=== PATIENT | male | born 1995 | race Caucasian/White ===

== ENCOUNTER 2016-07-11 18:44 | Emergency (ER) | payer OTHER ==
[~2016-07-11] VITALS: Ht 180.3 cm; Wt 69.4 kg
[2016-07-11 18:45] VITALS: TEMP 36.4; O2SAT 99; Ht 180.3 cm; Wt 69.4 kg
[2016-07-11] MEDS ORDERED: RMCI INJ (18:56)
[2016-07-11 19:25] LABS: BLOOD UREA NITROGEN 14 mg/dl (7-18); CALCIUM 8.5 mg/dl (8.5-10.1); CARBON DIOXIDE 22 mmol/L (21-32); CHLORIDE 110 mmol/L (98-107); CREATININE 0.75 mg/dl (0.60-1.40); GLUCOSE 107 mg/dl (70-99); POTASSIUM 3.5 mmol/L (3.5-5.1); SODIUM 145 mmol/L (136-145)
--- NOTE | 2016-07-11 19:59 | EMERGENCY ROOM VISIT NOTE ---
History Report prepared by Nargis: Bernadine Giang Under the Supervision of: Dr. Sunny Quach M.D. First contact with patient: 18:39 Chief Complaint: ALCOHOL OVERDOSE Stated Complaint: ETOH Nursing Triage Summary: Pt arrived via [facility] from [facility]. Per EMS, pt was "semi conscious" found by PD stumbling on [address] Pt denies falling, hitting head or any injury. History of Present Illness The patient is a 21 year old male who presents to the Emergency Room with complaints of an episode of alcohol overdose occurring [employer]. [facility] When they arrived the patient was standing and talking. He denies vomiting or head injury. The patient states that he started drinking around 2pm. The history is limited secondary to intoxication. Source of History: patient History Limited By: intoxication Onset: [employer] Position: other (global) Quality: other (intoxication) Timing: other (episode) Associated Symptoms: No vomiting Review of Systems ROS is limited secondary to intoxication. Past Medical & Surgical Medical Problems: (1) No significant active problems Family History No pertinent history stated. Social History Smoking Status: Never Smoker Alcohol Use: occasionally Marital Status: single Housing Status: lives with roommate Current/Historical Medications Scheduled Infliximab (Remicade), 10 ML INJ [id number] Allergies Coded Allergies: No Known Allergies (Unverified , 07/11/16) Physical Exam Vital Signs Date Time Temp Pulse Resp B/P Pulse Ox O2 Delivery O2 Flow Rate FiO2 07/12/16 01:35 87 20 130/95 98 07/12/16 00:59 91/77 07/12/16 00:53 82 21 95 07/12/16 00:28 123/85 07/12/16 00:23 89 18 96 07/12/16 00:18 86 20 94 07/12/16 00:00 92 07/11/16 23:58 139/94 07/11/16 23:48 87 25 99 07/11/16 23:37 154/116 07/11/16 23:28 123/112 07/11/16 23:18 91 19 94 07/11/16 23:13 90 17 95 07/11/16 22:59 135/99 07/11/16 22:43 88 19 92 07/11/16 22:28 132/81 07/11/16 22:13 88 21 92 07/11/16 22:08 81 21 95 07/11/16 21:58 135/70 07/11/16 21:38 88 19 93 07/11/16 21:28 127/77 07/11/16 21:08 86 16 96 07/11/16 21:03 77 16 95 07/11/16 20:58 135/65 07/11/16 20:33 112 20 96 07/11/16 20:23 84 07/11/16 19:03 89 14 98 07/11/16 18:58 107 126/81 98 07/11/16 18:47 143/109 07/11/16 18:45 36.4 104 14 143/109 99 Room Air 07/11/16 18:45 99 Room Air Physical Exam Vital signs reviewed. General: Odor of EtOH in the breath, disheveled 21-year-old male. No signs of trauma. HEENT: Mild scleral injection bilaterally, PERRLA, neck supple, dry mucous membranes. Cardiovascular: Regular rate and rhythm, no extra sounds. Pulmonary: Clear to auscultation bilaterally, normal work of breathing. Abdomen: Soft, nontender, nondistended, positive bowel sounds. Musculoskeletal: Upper and lower extremities atraumatic, no peripheral edema Skin: Warm, dry, no rash. Atraumatic. Neurologic: Patient is currently nonverbal. Medical Decision & Procedures Laboratory Results 07/11/16 18:58 Test 07/11/16 18:58 07/11/16 19:01 Anion Gap 13.0 mmol/L (3-11) Est Creatinine Clear Calc Drug Dose 152.9 ml/min Estimated GFR () > 150.0 Estimated GFR (Non- 131.1 BUN/Creatinine Ratio 18.0 (10-20) Calcium Level 8.5 mg/dl (8.5-10.1) Ethyl Alcohol mg/dL 301.0 mg/dl (0-3) Bedside Glucose 99 mg/dl (70-99) Labs reviewed by ED physician. ED Course 1839: Past medical records reviewed. The patient was evaluated in room C3. A complete history and physical examination was performed. 2215: I reassessed the patient and he was sleeping at this time. 0700: The discharge instructions were discussed with the patient and he was discharged home at this time. Medical Decision Differential diagnosis: Etiologies such as alcohol intoxication, toxicologic, infection, hypoglycemia, electrolyte abnormalities, cardiac sources, intracerebral event, neurologic, as well as others were entertained. This is a 21-year-old male who presents emergency department clinically intoxicated. Upon arrival to emergency department the patient is unable follow commands and also unable to stand. He is placed in a prone position on the clinical research monitor and in the diaper. Aspiration precautions were taken. The patient was frequently rounded on. Alcohol level was obtained and was 300 at 7 PM. After some time the patient's intoxication did clear. At this point he is requesting to be discharged home. He was discharged in the care of a sober friend who is willing to take responsibility for him for the rest of the evening. The patient was strongly encouraged to discuss this visit with his parents. Impression Primary Impression: Alcohol intoxication Scribe Attestation The scribe's documentation has been prepared under my direction and personally reviewed by me in its entirety. I confirm that the note above accurately reflects all work, treatment, procedures, and medical decision making performed by me. Departure Information Dispostion Home / Self-Care Referrals No Doctor, Assigned (PCP) Forms HOME CARE DOCUMENTATION FORM, IMPORTANT VISIT INFORMATION, School Instructions, Work Instructions Patient Instructions Alcohol Abuse - [facility], [facility]: [employer] Students and Alcohol Related Visits, My [facility] Additional Instructions STRONGLY SUGGEST YOU DISCUSS THIS VISIT WITH YOUR PARENTS LUIS A = 300 @ 1900; sober at 7 AM You have been examined and treated today on an emergency basis only. This is not a substitute for, or an effort to provide, complete comprehensive medical care. It is impossible to recognize and treat all injuries or illnesses in a single emergency department visit. It is therefore important that you follow up closely with your PCP. Call as soon as possible for an appointment. Thank you for your time and consideration. I look forward to speaking with you again soon. Please don't hesitate to call us if you have any questions. Problem Qualifiers Primary Impression: Alcohol intoxication Complication of substance-induced condition: uncomplicated Qualified Codes: F10.120 - Alcohol abuse with intoxication, uncomplicated
[2016-07-12 01:35] VITALS: BP 130/95; PULSE 87; O2SAT 98
== END 2016-07-12 01:35 | disposition home or self-care (01) ==
LOC: EDBD 18:44 → C.EDC 18:47
DX: F10.120 Alcohol abuse with intoxication, uncomplicated (principal)